=== PATIENT | male | born 1970 | race Caucasian/White ===

== ENCOUNTER → 2018-09-24 | Day surgery (SDC) | payer BC ==
[2018-09-24] VITALS (8 sets, daily range): BP systolic 105–140; BP diastolic 57–80
[~2018-09-24] VITALS: Ht 175.3 cm; Wt 126.3 kg
[~2018-09-24] MED LIST: ASPI-1130 PO; ATOR40TA72 PO; CHLO25TA10 PO; CHOL50004 PO; DICL75TA28 PO; LIDOcaine 1% 30ml preserv. free vial ONE; LIDOcaine/PRILOcaine 5gm cream TP ONE; LORazepam 0.5 MG tablet PO PRN; LOSA100T15 PO; METF-950 PO; NITR0.4T48 SL; POTA10TA15 PO; diphenhydrAMINE 25mg capsule PO PRN; fentaNYL/PF 50MCG/1 ML 2ML syringe ONE; heparin 1,000unit/ml 10ml vial 10 ML ONE; iohexol 350MG/ML 100ml bottle IV ONE; midazolam 2 mg/2 ml injection ONE; nitroGLYCERIN-Tridil 50MG/D5W 250 ML IV ONE; normal saline 1000ml 1,000 ML IV SCH; verapamil 2.5 mg/ml inj IV ONE
== END | disposition home or self-care (01) ==
LOC: SSTAY O 13:42
PROVIDERS: ATTEND Internal Medicine Interventional Cardiology
DX: I25.118 Atherosclerotic heart disease of native coronary artery with other forms of angina pectoris (principal); I10 Essential (primary) hypertension; E11.9 Type 2 diabetes mellitus without complications; E78.5 Hyperlipidemia, unspecified; Z79.84 Long term (current) use of oral hypoglycemic drugs; Z79.82 Long term (current) use of aspirin; Z79.1 Long term (current) use of non-steroidal anti-inflammatories (NSAID); Z88.0 Allergy status to penicillin; Z88.5 Allergy status to narcotic agent; Z88.6 Allergy status to analgesic agent; Z72.89 Other problems related to lifestyle; Z98.890 Other specified postprocedural states; Z79.899 Other long term (current) drug therapy
CPT/HCPCS: 82948; 93005; 93458; 99152; 99153; J1644; J2250; J3010; J3490; J7030; Q0163; Q9967; A4620; C1769